=== PATIENT | female | born 1970 | race Caucasian/White ===

== ENCOUNTER → 2016-12-30 | Outpatient (CLI) | payer BC ==
[2016-12-30 10:26] LABS: HEMATOCRIT 45.4 % (37.0-47.0); HEMOGLOBIN 14.9 g/dL (12.0-16.0); MEAN CORPUSCULAR HEMOGLOBIN 34.6 PG (27-31); MEAN CORPUSCULAR HGB CONC 32.8 g/dL (33-37); MEAN CORPUSCULAR VOLUME 105.3 FL (81-99); MEAN PLATELET VOLUME 10.3 FL (7.4-12.2); RED BLOOD COUNT 4.31 10^6/uL (4.20-5.40)
[2016-12-30 10:32] LABS: BLOOD UREA NITROGEN 15 mg/dL (7-22); BUN/CREATININE RATIO 18.75 (6-20); CALCIUM 9.2 mg/dL (8.7-10.7); EST GLOMERULAR FILTRATION > 60 (>60 ml/min/1.73m(2)); SERUM ALBUMIN 4.3 g/dL (3.5-4.8); SERUM CHOLESTEROL 205 mg/dL (120-200)
[2016-12-30 10:44] LABS: CHOL/HDL RATIO 1.55 RATIO (0-4.0); HDL CHOLESTEROL 132 mg/dL (40-150)
== END ==
LOC: LAB 10:10
PROVIDERS: ATTEND Family Medicine
DX: Z00.00 Encounter for general adult medical examination without abnormal findings (principal); E53.8 Deficiency of other specified B group vitamins
CPT/HCPCS: 36415; 80053; 80061; 82607; 84443; 85027

== ENCOUNTER → 2016-12-30 | Outpatient (CLI) | payer BC ==
[2016-12-30 15:43] LABS: BILIRUBIN,URINE NEGATIVE (NEG); COLOR,URINE YELLOW; GLUCOSE, URINE (UA) NEGATIVE (NEG); NITRATE,URINE NEGATIVE (NEG); OCCULT BLOOD,URINE NEGATIVE (NEG); PH,URINE 5.5 (5.0-8.5); PROTEIN,URINE NEGATIVE (NEG); UROBILINOGEN,URINE 0.2 mg/dL (0.2)
[2016-12-30 15:45] LABS: CLARITY,URINE CLEAR (CLEAR)
[2016-12-30 15:47] LABS: URINE SAMPLE TYPE VOID
[2016-12-30 15:49] LABS: SQUAMOUS EPITHELIAL CELL,UR MANY
== END ==
LOC: MOB LAB 13:16
PROVIDERS: ATTEND Family Medicine
DX: R30.0 Dysuria (principal)
CPT/HCPCS: 81001

== ENCOUNTER 2018-05-20 09:50 | Inpatient (IN) ==
[2018-05-20] MEDS ORDERED: ONDANSETRON 4 MG/2 ML VIAL IVP ONE (10:11)
[2018-05-20] MEDS ORDERED: Sodium Chloride 0.9% 1,000 ML PRIMARY IV ONE (10:11)
[2018-05-20] MEDS ORDERED: LORazepam 2 MG/1 ML VIAL IVP ONE (10:14)
[2018-05-20] MEDS ORDERED: Sodium Chloride 0.9% 1,000 ML, Magnesium Sulfate 2gm (Premix) 50 ML with Multivitamin I... IV ONE ×5 (10:15)
[2018-05-20 10:18] LABS: BASOPHILS # (AUTO) 0.02 10*3/UL; BASOPHILS % (AUTO) 0.2 % (0-1); EOSINOPHILS # (AUTO) 0.09 10*3/UL; EOSINOPHILS % (AUTO) 1.1 % (0-8); Hematocrit [HCT] 45.9 % (37.0-47.0); Hemoglobin [HGB] 16.8 g/dL (12.0-16.0); LYMPHOCYTES # (AUTO) 1.36 10*3/uL; MEAN CORPUSCULAR HEMOGLOBIN 38.1 PG (27-31); MEAN CORPUSCULAR HGB CONC 36.6 g/dL (33-37); MEAN CORPUSCULAR VOLUME 104.1 FL (81-99); MEAN PLATELET VOLUME 10.4 FL (7.4-12.2); MONOCYTES # (AUTO) 0.77 10*3/UL (0.3-0.8); MONOCYTES % (AUTO) 9.2 % (5-15); NEUTROPHILS # (AUTO) 6.08 10*3/UL; NEUTROPHILS % (AUTO) 73.1 % (50-80); RED BLOOD COUNT 4.41 10^6/uL (4.20-5.40)
--- NOTE | 2018-05-20 10:23 | EKG ---
[address] [address] Measurements Intervals [place] Rate: 107 P: 74 ID: [id number] QRS: 17 QRSD: 82 T: 57 QT: 306 QTc: 369 Interpretive Statements SINUS TACHYCARDIA LOW QRS VOLTAGE IN PRECORDIAL LEADS ABNORMAL RHYTHM ECG No previous ECG available for comparison Electronically Signed On 05-20-18 15:06:41 MDT by Dennis Oleary [id number]
[2018-05-20 10:24] LABS: PLATELET MORPHOLOGY COMMENT NORMAL MORPHOLOGY (NORM); RBC MORPHOLOGY COMMENT NORMAL MORPHOLOGY (NORM); WBC MORPHOLOGY COMMENT NORMAL MORPHOLOGY (NORM)
[2018-05-20 10:25] LABS: BLOOD UREA NITROGEN 6 mg/dL (7-22); BUN/CREATININE RATIO 8.57 (6-20); SERUM ALBUMIN 4.4 g/dL (3.5-4.8)
[2018-05-20 10:27] LABS: VENOUS PH 7.42 (7.32-7.42)
[2018-05-20] MEDS ORDERED: Sodium Chloride 0.9% 1,000 ML with Multivitamin Inj 10 ML, Thiamine Inj 100 MG, Folic A... IV ONE ×5 (10:45)
[2018-05-20 10:46] LABS: BILIRUBIN,URINE SMALL (NEG); CLARITY,URINE CLEAR (CLEAR); COLOR,URINE YELLOW (Y); GLUCOSE, URINE (UA) NEGATIVE (NEG); OCCULT BLOOD,URINE NEGATIVE (NEG); PH,URINE 5.5 (5.0-8.5); PROTEIN,URINE 30 mg/dl (NEG); UROBILINOGEN,URINE 0.2 EU/dL (0.2)
[2018-05-20 10:55] LABS: BACTERIA,URINE FEW; SQUAMOUS EPITHELIAL CELL,UR MANY; URINE SAMPLE TYPE CLEAN CATCH URINE
[2018-05-20 10:56] LABS: OPIATE SCREEN,URINE NEGATIVE (NEG)
[2018-05-20 10:57] LABS: AMPHETAMINE SCREEN NEGATIVE (NEG); CANNABINOID SCREEN,URINE POSITIVE (NEG); COCAINE SCREEN NEGATIVE (NEG); METHADONE URINE SCREEN NEGATIVE (NEG); METHAMPHETAMINES SCREEN,URINE NEGATIVE (NEG)
--- NOTE | 2018-05-20 12:20 | PDOC ---
General Adult HPI - General Chief Complaint: Palpitations Stated Complaint: RAPID HR Date Seen by Provider: 05/20/18 Time Seen by Provider: 10:00 Source: POSITIVE: Patient Exam Limitations: POSITIVE: No limitations Nurse's Notes Reviewed & Considered: Yes - History of Present Illness Initial Comment: The patient is a 48-year-old female. She states that this morning she was preparing to take a shower and developed a "rapid heart rate". She also has been very tremulous this morning. She denies any head chest or abdominal pain. Dizziness but no syncope. No focal sensory or motor symptoms. Patient has a long-standing history of alcohol abuse and states she drinks about 12 cans of beer every night. No dyspnea, fevers, or chills. She did have some nausea and vomiting this morning. 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 Have you received a tetanus shot in the past 10 years?: Yes Body Location Affected: REPORTS: Chest ("Rapid heart rate"), Other (Tremulous) Timing: REPORTS: Gradual, Getting Worse Duration: 4-6 hours Severity: Moderate Quality: REPORTS: Other (Patient denies any pain anywhere) Modifying Factors: improves with: Vomiting (Nausea with vomiting this morning) Similar Symptoms Previously: No Recent Care Received: REPORTS: Denies Any Prior Injuries Related to Current Complaint?: No - Patient Home Medications Home Medications: Home Medications Aspirin [Aspir 81] 81 mg PO DAILY tab 12/12/15 sertraline 100 mg tablet 100 mg PO QD #90 tab 02/08/18 ondansetron 4 mg disintegrating tablet 4 mg PO BID-TID PRN #10 tab 05/19/18 pantoprazole 40 mg tablet,delayed release 40 mg PO BID 14 Days #28 tab 05/19/18 Cyanocobalamin (Vitamin B-12) [B-12] 1,000 mcg PO DAILY 05/20/18 Multivitamin [Multivitamins] 1 ea PO DAILY 05/20/18 - Patient Allergies Allergies/Adverse Reactions: Allergies 3 Allergy/AdvReac Type Severity Reaction Status Date / Time No Known Drug Allergies Allergy NO KNOWN Verified 05/20/18 10:10 ALLERGY Past Medical History - heen HEENT History: Denies History Cardiovascular History: Denies History Additional Cardiovasular History: OCCASIONAL MURMUR, PALPATATIONS Respiratory History: Snoring Gastrointestinal History: Other (please comment) Additional Gastrointestinal History: CHRONIC DIARRHEA Genitourinary History: Denies History Endocrine History: Denies History Musculoskeletal History: Joint Pain Additional Musculoskeletal History: L KNEE Neurological History: Seizures Additional Neurological History: DIAGNOSED BRAIN TUMOR. Additional Blood Disorders History: FACTOR V. 0900 DR ROSA AWARE OF SURGERY AND OK WITH PT STOPPING COUMADIN. NO BRIDGE THERAPY NEEDED. SB Psychiatric History: Depression, Anxiety Disorders History of Sexually Transmitted Diseases: No History of MDRO: No History of Other Communicable Diseases: No Alcohol Use: Occasionally In the Past 12 Months, Have Used or Abuse Any Substance: None Previous Surgical History: Yes Anesthesia Reactions: No Malignant Hyperthermia: No Significant Family History: No pertinent family hx Past Medical History Reviewed: Reviewed - No Changes ROS - Limitations ROS Limitations: No Limitations Constitution: REPORTS: Weakness Cardiovascular: REPORTS: Heart Racing Respiratory: REPORTS: Denies Resp Symptoms Neurological: REPORTS: Denies Neuro Symptoms Gastrointestinal: REPORTS: Nausea, Vomitting Endocrine: REPORTS: Denies Symptoms Musculoskeletal: REPORTS: Denies MS Symptoms Genitourinary: REPORTS: Denies Symptoms Eyes: REPORTS: Denies Symptoms ENT: REPORTS: Denies Symptoms Skin: REPORTS: Denies Skin Symptoms Lympathic: REPORTS: Denies Lympathic Symptoms Immunologic: POSITIVE: Denies Symptoms Psychiatric: POSITIVE: Anxiety General Adult Exam - General Appearance General Appearance: POSITIVE: Alert, Cooperative, No Acute Distress, No Evidence of Trauma, Anxious, Other (Very tremulous and anxious) - HEENT HEENT: POSITIVE: Head Inspection Nml, Eyes Inspection Nml, Ears Inspection Nml, Nose Inspection Nml, Oral/Dental Inspect. Nml, Pharynx Inspect. Nml, PERRL, EOMI - Pupils Pupil Size: 4 mm: Bilateral (PERRLA) - Neck Neck: POSITIVE: Normal Inspection, Thyroid Normal - Respiratory Respiratory: POSITIVE: No Respiratory Distress, Breath Sounds Normal, Chest Non- Tender, Other (Respiratory rate 24/m) - Cardiovascular Cardiovascular: POSITIVE: Regular Rate & Rhythm, No Murmur, No Gallop, PMI Normal, Tachycardia (Sinus tachycardia had around 115/m) Peripheral Pulses: Radial (R): 2+, Radial (L): 2+ - Abdomen Abdomen: Soft: (All Quadrants), Normal Bowel Sounds: (All Quadrants), Denies Tenderness: (All Quadrants), No Splenomegaly: (All Quadrants), No Hepatomegaly: (All Quadrants), No Guarding: (All Quadrants), No Rebound: (All Quadrants), No Palpable Pulse: (All Quadrants), No [place] Mass: (All Quadrants), No Distention: (All Quadrants), No Rigidity: (All Quadrants) - Back Back: POSITIVE: Normal Inspection - Skin Skin: POSITIVE: Normal Color, Warm, Dry, No Rash - Extremities Extremity: Non-Tender: (All Extremities), Normal ROM: (All Extremities), Normal Inspection: (All Extremities) - Neurological / Psychological Neurological: POSITIVE: Oriented X3, hr clerk Normal As Tested, Motor Normal, Sensation Normal, 5, 6 General Adult Progress - Results Reviewed by me Lab Results Reviewed by Me: Yes Lab Results:: Laboratory Results 3 05/20/18 05/20/18 05/20/18 10:00 10:00 10:00 WBC 8.33 RBC 4.41 Hgb 16.8 H Hct 45.9 MCV 104.1 H MCH 38.1 H MCHC 36.6 RDW Std Deviation 50.6 H RDW Coeff of [place] 13.3 Plt Count 210 MPV 10.4 Immature Gran % (Auto) 0.1 Neut % (Auto) 73.1 Lymph % (Auto) 16.3 [place] % (Auto) 9.2 Eos % (Auto) 1.1 Baso % (Auto) 0.2 Immature Gran # (Auto) 0.01 Neut # (Auto) 6.08 Lymph # (Auto) 1.36 [place] # (Auto) 0.77 Eos # (Auto) 0.09 Baso # (Auto) 0.02 WBC Morphology Comment Normal morphology Plt Morphology Comment Normal morphology RBC Morph Comment Normal morphology VBG pH VBG pCO2 VBG HCO3 VBG Base Excess Sodium 138 Potassium 3.9 Chloride 105 Carbon Dioxide 19 L Anion Gap 14 BUN 6 L Creatinine 0.7 Estimated GFR > 60 BUN/Creatinine Ratio 8.57 Glucose 76 L Calculated Osmolality 282.0 Calcium 9.5 Magnesium 2.0 Total Bilirubin 0.8 AST 185 H ALT 148 H Alkaline Phosphatase 128 H Total Creatine Kinase 46 Troponin I < 0.012 Total Protein 7.4 Albumin 4.4 Globulin 3.0 Albumin/Globulin Ratio 1.40 TSH Ur Collection Type Urine Color Urine Clarity Urine pH Ur Specific [place] U Specif Grav (Refrac) Urine Protein Urine Glucose (UA) Urine Ketones Urine Occult Blood Urine Nitrate Urine Bilirubin Urine Urobilinogen Ur Leukocyte Esterase Urine RBC Urine WBC Ur Squamous Epith Cells Ur Renal Epithelial Cell Urine Crystals Urine Bacteria Urine Casts Urine Mucus Urine Trichomonas Urine Yeast Ur Culture Indicated? Urine Opiates Screen Ur Buprenorphine Ur Oxycodone Screen Urine Methadone Screen Ur Propoxyphene Screen Barbiturate Screen U Tricyclic Antidepress Phencyclidine Screen Amphetamines Screen U Methamphetamines Scrn Benzodiazepines Screen Cocaine Screen U Marijuana (THC) Screen Serum Alcohol 21 H 3 05/20/18 05/20/18 05/20/18 10:00 10:20 10:35 WBC RBC Hgb Hct MCV MCH MCHC RDW Std Deviation RDW Coeff of [place] Plt Count MPV Immature Gran % (Auto) Neut % (Auto) Lymph % (Auto) [place] % (Auto) Eos % (Auto) Baso % (Auto) Immature Gran # (Auto) Neut # (Auto) Lymph # (Auto) [place] # (Auto) Eos # (Auto) Baso # (Auto) WBC Morphology Comment Plt Morphology Comment RBC Morph Comment VBG pH 7.42 VBG pCO2 34 L VBG HCO3 22 VBG Base Excess -3 L Sodium Potassium Chloride Carbon Dioxide Anion Gap BUN Creatinine Estimated GFR BUN/Creatinine Ratio Glucose Calculated Osmolality Calcium Magnesium Total Bilirubin AST ALT Alkaline Phosphatase Total Creatine Kinase Troponin I Total Protein Albumin Globulin Albumin/Globulin Ratio TSH 0.899 Ur Collection Type Clean catch urine Urine Color Yellow Urine Clarity Clear Urine pH 5.5 Ur Specific [place] 1.030 U Specif Grav (Refrac) 1.030 Urine Protein 30 A Urine Glucose (UA) Negative Urine Ketones 40 Urine Occult Blood Negative Urine Nitrate Negative Urine Bilirubin Small Urine Urobilinogen 0.2 Ur Leukocyte Esterase Small Urine RBC 1-3 Urine WBC 4-8 H Ur Squamous Epith Cells Many Ur Renal Epithelial Cell None Urine Crystals None Urine Bacteria Few Urine Casts None Urine Mucus Moderate Urine Trichomonas None Urine Yeast None Ur Culture Indicated? Culture not set Urine Opiates Screen Negative Ur Buprenorphine Negative Ur Oxycodone Screen Negative Urine Methadone Screen Negative Ur Propoxyphene Screen Negative Barbiturate Screen Negative U Tricyclic Antidepress Negative Phencyclidine Screen Negative Amphetamines Screen Negative U Methamphetamines Scrn Negative Benzodiazepines Screen Negative Cocaine Screen Negative U Marijuana (THC) Screen Positive H Serum Alcohol CBC and BMP: 05/20/18 10:00 05/20/18 10:00 EKG Interpreted/Reviewed By Me:: Yes EKG Interpretation:: POSITIVE: Normal Intervals, Normal [place], Normal QRS, Normal ST/T, Abnormal EKG (Sinus tachycardia). NEGATIVE: Normal Sinus Rhythm ( Sinus tachycardia at 110/m), Normal Rate (110/m) - Patient's Progress School/Work Release Addressed: POSITIVE: Not Applicable Re-Examine Time: 12:15 Re-Examine Comment: Patient given 2 mg of Ativan and a banana bag of 100 mg of thiamine, 1 mg folic acid and 2 g of magnesium sulfate and a liter of fluid. Heart rate down to around 95 for minute now and tremulousness resolved. Patient resting comfortably. Status: POSITIVE: Improved, Re-Examined Antibiotics Given: No - Consult Consult (If Yes, Name of Consulting MD & Time Called): Yes (Dr. Espinoza, hospitalist, [id number]) Consulting MD will see pt:: POSITIVE: [facility] [place] Admit Counseled: POSITIVE: Patient, RE: Lab Results, RE: DX, RE: Need for F/U Patient Care Time - Estimated PCT Patient Care Time (In Minutes): 50 Vital Signs - Recent Vital Signs Vital Signs: Vital Signs (Last 8 hours) Pulse 05/20/18 09:58 107 H 05/20/18 09:50 111 H - VS Reviewed Vital Signs Reviewed: Yes Discharge Clinical Impression: Alcohol abuse, Alcohol withdrawal Discharge Disposition: Admit to Inpatient Condition: Fair Follow Up With: Carolyn Durham [Primary Care Provider] - Date Decision to Admit to Inpatient: 05/20/18 Time Decision to Admit to Inpatient: 12:00
[2018-05-20] MEDS ORDERED: ACETAMINOPHEN 500 MG TABLET PO PRN (13:54)
[2018-05-20] MEDS ORDERED: MAG HYDROX/AL HYDROX/SIMETH 30 ML SUSP PO PRN (13:54)
[2018-05-20] MEDS ORDERED: ONDANSETRON 4 MG/2 ML VIAL IVP PRN (13:54)
[2018-05-20] MEDS ORDERED: LIDOCAINE W/ SODIUM BICARB 0.5 ML SYR SUBD PRN (13:54)
[2018-05-20] MEDS ORDERED: Loperamide Tab 2 MG TABLET PO PRN (13:54)
[2018-05-20] MEDS ORDERED: Magnesium Sulfate 2gm (Premix) 2 GM/50 ML BAG IV ONE (13:54)
[2018-05-20] MEDS ORDERED: LORazepam 1 mg tab (ETOH withdrawal) PO PRN (13:54)
[2018-05-20] MEDS ORDERED: LORazepam Inj(ETOH withdrawal) 2 MG/ML VIAL IVP PRN (13:54)
[2018-05-20] MEDS ORDERED: MAGNESIUM 400 MG/5 ML - 30 ML (MILK OF MAGNESIA) PO PRN (13:54)
[2018-05-20] MEDS: ChlordiazePOXIDE Cap 25 MG CAPSULE PO SCH ×2 (14:36→22:18)
[2018-05-20] MEDS ORDERED: NICOTINE 21 MG /DAY PATCH TRANSDERM PRN (15:00)
--- NOTE | 2018-05-20 16:41 | DI ---
AP CHEST X-RAY, 05/20/2018 3:02 PM : Clinical History: Tachycardia. Cough. Previous Exam: None at this facility. There is no acute soft tissue or bony abnormality. Heart size is normal. Lungs are clear. Mediastinal structures are normal. There are no pulmonary nodules. Reading: Normal chest x-ray.
--- NOTE | 2018-05-20 17:49 | DI ---
CT ABDOMEN SCAN WITH IV CONTRAST, 05/20/2018 4:30 PM : Clinical History: Abdominal pain. Previous Exam: None at this facility. Scans are performed from the lower lung bases through the liver and kidneys with IV contrast. 75 mL o f Isovue 300 was injected IV. No oral or rectal contrast was ordered. The lung bases are clear. The liver is normal in size but shows marked diffuse fatty infiltration The gallbladder is grossly normal. There is no abnormality of the spleen, pancreas, and adrenal glands. Both kidneys are normal in size, shape, position and contour. There is no hydronephrosis or hydrouret er. No renal or ureteral calculi are present. There are no abnormal retrocrural or periaortic nodes. No ascites is present. READING: Diffuse fatty infiltration of the liver. The exam is otherwise normal. CT PELVIS SCAN WITH IV CONTRAST, 05/20/2018 4:30 PM: Clinical History: See above. Previous Exam: None at this facility. Scans are performed from just superior to the umbilicus to the symphysis pubis with IV contrast. This is the same bolus of contrast used for the CT scans of the abdomen. Scans through the lower abdomen and pelvis show no masses, enhancing lesions, or abnormal fluid colle ctions. There is no adenopathy. The appendix is quite long but normal. The small bowel, terminal ileu m, and ileocecal valve are normal. The colon is also normal. There are no hernias. There is an IUD in the uterus and the uterus itself is normal. Both ovaries are normal. READING: Normal CT scan of the pelvis with IV contrast.
--- NOTE | 2018-05-20 21:21 | PDOC ---
HPI - History of Present Illness Date of Service: 05/20/18 Time of Service: 16:00 Chief Complaint: Rapid heartbeat and chest discomfort History of Present Illness: This is a 48-year-old female with a prior history of a left-sided brain tumor that was resected several years ago in [place], [place], and apparently was deemed a benign tumor, who presents with complaints of rapid onset heart rate spontaneously this morning along with some chest discomfort. She states that she's had intermittent cough with post 2 subjective vomiting recently, but no fevers and no chills. She states that accompanied with this she had some mid and lower quadrant abdominal pain. She's never had anything like this happen before. She came into the emergency room for evaluation. It is presumed that her tachycardia was related to alcohol withdrawal and she was given a dose of Ativan and apparently the patient seemed to relax in terms of her tachycardia. She had some chest discomfort with this. She states that that resolved. She admits to drinking 6-12 beers a day, but has never had any alcohol withdrawal problems before. Her labs did show some elevated liver enzymes but coagulation studies were not done. The patient states that again, she's never had alcohol withdrawal, has never had alcohol withdrawal seizures, and does not complain of agitation, or tremors in the morning. She states her last alcoholic beverage was around 9 PM last night. On the floor here when I see her, she is not exhibiting signs of alcohol withdrawal. She does have a family history of heart disease, and she does smoke. She does not have diabetes, does not have hypertension, and she does not know her cholesterol status. She is not on any medications for any primary medical issues. There was no exertional component to the pain. The pain seemed to coincide with the elevated heart rate. The urinalysis was positive for marijuana. She did not deny smoking marijuana. Interestingly, the patient states that her abdominal pain is been somewhat persistent and that there was a plan to do an ultrasound to look at the gallbladder from a recent outpatient visit. Past Medical History Medical History: 1. Heavy alcohol use. 2. History of brain tumor with seizure that resolved after brain tumor resection. 3. Tobacco abuse. 4. Marijuana use. 5. Depression, on Zoloft. 6. GERD Surgical History: 1. Brain tumor resection. Apparently she was treated with chemotherapy and radiation although she was told that 50% of the tumor still remained post surgery and she did follow up until the last 3 years. She states that she was told the tumor was benign. Pertinent Family History: Significant for coronary artery disease. Past Social History: Smokes tobacco and marijuana. Drinks 6-12 beers a day. 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 . Has 2 children described as healthy. Tobacco Use: Current Every Day Smoker In the Past 12 Months, Have Used or Abuse Any of the Following Substance: Marijuana Alcohol Use: Heavy Medication / Allergies Home Medications: Home Medications 3 Medication Instructions Recorded Confirmed Type Aspirin [Aspir 81] 81 mg PO DAILY tab 12/12/15 05/20/18 History sertraline 100 mg tablet 100 mg PO QD #90 tab 02/08/18 05/20/18 Rx ondansetron 4 mg disintegrating 4 mg PO BID-TID PRN #10 tab 05/19/18 05/20/18 Rx tablet pantoprazole 40 mg tablet,delayed 40 mg PO BID 14 Days #28 tab 05/19/18 Rx release Cyanocobalamin (Vitamin B-12) 1,000 mcg PO DAILY 05/20/18 05/20/18 History [B-12] Multivitamin [Multivitamins] 1 ea PO DAILY 05/20/18 05/20/18 History Allergies/Adverse Reactions: Allergies 3 Allergy/AdvReac Type Severity Reaction Status Date / Time No Known Drug Allergies Allergy NO KNOWN Verified 05/20/18 10:10 ALLERGY Review of Systems - Review of Systems All Systems: Reviewed & No Additional Complaints Except as Stated (I did a 12 point review of systems and other than that discussed in history present illness , the review systems was negative.) Exam - Vitals Vital Signs: Vital Signs Temperature 97.5 F Temperature Source Temporal Artery Scan Pulse Rate [Telemetry] 83 Pulse Rate 96 Respiratory Rate 16 Blood Pressure [Right Arm] 122/70 Blood Pressure 126/68 Pulse Ox 94 Oxygen Delivery Method Room Air Height 5 ft 3 in Weight 145 lb 5 oz - General General Appearance: No Acute Distress, Cooperative - Head Head Exam: Normal Inspection, Normocephalic, Atraumatic - Eye Eye Exam: POSITIVE: No Scleral Icterus - ENT ENT Exam: POSITIVE: Mucous Membranes Moist - Neck Neck Exam: Normal Inspection, No Tenderness, No Lymphadenopathy, No Thyromegaly , JVP is not Raised - Respiratory Respiratory Exam: POSITIVE: Clear to Auscultation - Bilaterally, Breathing Non Labored, Normal to Percussion and Palpation - Cardiovascular Cardiovascular Exam: POSITIVE: RRR, No Murmur, No Clicks, No Gallops, No Rubs, No JVD - GI/Abdominal GI/Abdominal Exam: POSITIVE: Normal Bowel Sounds, Non Tender, Non Distended, Soft - Rectal Rectal Exam: POSITIVE: Deferred - External Exam: POSITIVE: Deferred Exam: POSITIVE: Deferred - Extremities Extremities Exam: POSITIVE: No Clubbing Present, No Edema Present, No Cyanosis Present - Back Back Exam: POSITIVE: No CVA Tenderness - Neurological Neurological Exam: POSITIVE: Alert, Oriented x 3, No Facial Droop, Speech Intact / Clear, Moves All Extremities Equally - Psychiatric Psychiatric Exam: POSITIVE: Normal Mood, Flat Affect - Integumentary Integumentary Exam: POSITIVE: Normal Color, Warm, Dry, Intact - Central Line Examination Central Line Present on Admission: No Results - Labs CBC and BMP: 05/20/18 10:00 05/20/18 10:00 Additional Lab Results: Laboratory Results 05/20/18 05/20/18 05/20/18 Range/Units 10:00 10:00 10:00 WBC 8.33 (4.8-10.8) 10^3/uL RBC 4.41 (4.20-5.40) 10^6/uL Hgb 16.8 H (12.0-16.0) g/dL Hct 45.9 (37.0-47.0) % MCV 104.1 H (81-99) FL MCH 38.1 H (27-31) PG MCHC 36.6 (33-37) g/dL RDW Std Deviation 50.6 H (39-50) fL RDW Coeff of Harman 13.3 (11.5-14.5) % Plt Count 210 (140-350) 10*3/uL MPV 10.4 (7.4-12.2) FL Immature Gran % (Auto) 0.1 (0-5) % Neut % (Auto) 73.1 (50-80) % Lymph % (Auto) 16.3 (10-50) % Rooks % (Auto) 9.2 (5-15) % Eos % (Auto) 1.1 (0-8) % Baso % (Auto) 0.2 (0-1) % Immature Gran # (Auto) 0.01 10*3/UL Neut # (Auto) 6.08 10*3/UL Lymph # (Auto) 1.36 10*3/uL Rooks # (Auto) 0.77 (0.3-0.8) 10*3/UL Eos # (Auto) 0.09 10*3/UL Baso # (Auto) 0.02 10*3/UL WBC Morphology Comment Normal morphology (NORM) Plt Morphology Comment Normal morphology (NORM) RBC Morph Comment Normal morphology (NORM) VBG pH (7.32-7.42) VBG pCO2 (45-55) mmHg VBG HCO3 (22-26) mmol/L VBG Base Excess (-2-2) MMOL/L Sodium 138 (135-145) meq/L Potassium 3.9 (3.8-5.2) meq/L Chloride 105 (98-112) meq/L Carbon Dioxide 19 L (23-33) meq/L Anion Gap 14 (5-20) BUN 6 L (7-22) mg/dL Creatinine 0.7 (0.50-1.20) mg/dL Estimated GFR > 60 (>60 ml/min/1.73m(2)) BUN/Creatinine Ratio 8.57 (6-20) Glucose 76 L (78-110) mg/dL Calculated Osmolality 282.0 (267-292) mOsm/kg Calcium 9.5 (8.7-10.7) mg/dL Magnesium 2.0 (1.6-2.4) mg/dL Total Bilirubin 0.8 (0.3-1.2) mg/dL AST 185 H (8-39) IU/L ALT 148 H (9-52) IU/L Alkaline Phosphatase 128 H (38-126) IU/L Total Creatine Kinase 46 (30-136) IU/L Troponin I < 0.012 (< 0.040) ng/mL Total Protein 7.4 (6.1-8.0) g/dL Albumin 4.4 (3.5-4.8) g/dL Globulin 3.0 (2.50-4.10) g/dL Albumin/Globulin Ratio 1.40 (1.3-2.0) mg/g Lipase (23-300) IU/L TSH (0.2700-4.2000) uIU/mL Ur Collection Type Urine Color (Y) Urine Clarity (CLEAR) Urine pH (5.0-8.5) Ur Specific [place] (1.005-1.030) U Specif Grav (Refrac) Urine Protein (NEG) mg/dl Urine Glucose (UA) (NEG) mg/dL Urine Ketones (NEG) Urine Occult Blood (NEG) Urine Nitrate (NEG) Urine Bilirubin (NEG) Urine Urobilinogen (0.2) EU/dL Ur Leukocyte Esterase (NEG) Urine RBC (NONE) /hpf Urine WBC (NONE) Ur Squamous Epith Cells (NONE) Ur Renal Epithelial Cell (NONE) Urine Crystals Urine Bacteria (NONE) Urine Casts (NONE) Urine Mucus (NONE) Urine Trichomonas (NONE) Urine Yeast (NONE) Ur Culture Indicated? Urine Opiates Screen (NEG) Ur Buprenorphine (NEG) Ur Oxycodone Screen (NEG) Urine Methadone Screen (NEG) Ur Propoxyphene Screen (NEG) Barbiturate Screen (NEG) U Tricyclic Antidepress (NEG) Phencyclidine Screen (NEG) Amphetamines Screen (NEG) U Methamphetamines Scrn (NEG) Benzodiazepines Screen (NEG) Cocaine Screen (NEG) U Marijuana (THC) Screen (NEG) Serum Alcohol 21 H (0-10) mg/dL 05/20/18 05/20/18 05/20/18 Range/Units 10:00 10:20 10:35 WBC (4.8-10.8) 10^3/uL RBC (4.20-5.40) 10^6/uL Hgb (12.0-16.0) g/dL Hct (37.0-47.0) % MCV (81-99) FL MCH (27-31) PG MCHC (33-37) g/dL RDW Std Deviation (39-50) fL RDW Coeff of Harman (11.5-14.5) % Plt Count (140-350) 10*3/uL MPV (7.4-12.2) FL Immature Gran % (Auto) (0-5) % Neut % (Auto) (50-80) % Lymph % (Auto) (10-50) % Rooks % (Auto) (5-15) % Eos % (Auto) (0-8) % Baso % (Auto) (0-1) % Immature Gran # (Auto) 10*3/UL Neut # (Auto) 10*3/UL Lymph # (Auto) 10*3/uL Rooks # (Auto) (0.3-0.8) 10*3/UL Eos # (Auto) 10*3/UL Baso # (Auto) 10*3/UL WBC Morphology Comment (NORM) Plt Morphology Comment (NORM) RBC Morph Comment (NORM) VBG pH 7.42 (7.32-7.42) VBG pCO2 34 L (45-55) mmHg VBG HCO3 22 (22-26) mmol/L VBG Base Excess -3 L (-2-2) MMOL/L Sodium (135-145) meq/L Potassium (3.8-5.2) meq/L Chloride (98-112) meq/L Carbon Dioxide (23-33) meq/L Anion Gap (5-20) BUN (7-22) mg/dL Creatinine (0.50-1.20) mg/dL Estimated GFR (>60 ml/min/1.73m(2)) BUN/Creatinine Ratio (6-20) Glucose (78-110) mg/dL Calculated Osmolality (267-292) mOsm/kg Calcium (8.7-10.7) mg/dL Magnesium (1.6-2.4) mg/dL Total Bilirubin (0.3-1.2) mg/dL AST (8-39) IU/L ALT (9-52) IU/L Alkaline Phosphatase (38-126) IU/L Total Creatine Kinase (30-136) IU/L Troponin I (< 0.040) ng/mL Total Protein (6.1-8.0) g/dL Albumin (3.5-4.8) g/dL Globulin (2.50-4.10) g/dL Albumin/Globulin Ratio (1.3-2.0) mg/g Lipase (23-300) IU/L TSH 0.899 (0.2700-4.2000) uIU/mL Ur Collection Type Clean catch urine Urine Color Yellow (Y) Urine Clarity Clear (CLEAR) Urine pH 5.5 (5.0-8.5) Ur Specific [place] 1.030 (1.005-1.030) U Specif Grav (Refrac) 1.030 Urine Protein 30 A (NEG) mg/dl Urine Glucose (UA) Negative (NEG) mg/dL Urine Ketones 40 (NEG) Urine Occult Blood Negative (NEG) Urine Nitrate Negative (NEG) Urine Bilirubin Small (NEG) Urine Urobilinogen 0.2 (0.2) EU/dL Ur Leukocyte Esterase Small (NEG) Urine RBC 1-3 (NONE) /hpf Urine WBC 4-8 H (NONE) Ur Squamous Epith Cells Many (NONE) Ur Renal Epithelial Cell None (NONE) Urine Crystals None Urine Bacteria Few (NONE) Urine Casts None (NONE) Urine Mucus Moderate (NONE) Urine Trichomonas None (NONE) Urine Yeast None (NONE) Ur Culture Indicated? Culture not set Urine Opiates Screen Negative (NEG) Ur Buprenorphine Negative (NEG) Ur Oxycodone Screen Negative (NEG) Urine Methadone Screen Negative (NEG) Ur Propoxyphene Screen Negative (NEG) Barbiturate Screen Negative (NEG) U Tricyclic Antidepress Negative (NEG) Phencyclidine Screen Negative (NEG) Amphetamines Screen Negative (NEG) U Methamphetamines Scrn Negative (NEG) Benzodiazepines Screen Negative (NEG) Cocaine Screen Negative (NEG) U Marijuana (THC) Screen Positive H (NEG) Serum Alcohol (0-10) mg/dL 05/20/18 05/20/18 Range/Units 13:54 16:00 WBC (4.8-10.8) 10^3/uL RBC (4.20-5.40) 10^6/uL Hgb (12.0-16.0) g/dL Hct (37.0-47.0) % MCV (81-99) FL MCH (27-31) PG MCHC (33-37) g/dL RDW Std Deviation (39-50) fL RDW Coeff of Harman (11.5-14.5) % Plt Count (140-350) 10*3/uL MPV (7.4-12.2) FL Immature Gran % (Auto) (0-5) % Neut % (Auto) (50-80) % Lymph % (Auto) (10-50) % Rooks % (Auto) (5-15) % Eos % (Auto) (0-8) % Baso % (Auto) (0-1) % Immature Gran # (Auto) 10*3/UL Neut # (Auto) 10*3/UL Lymph # (Auto) 10*3/uL Rooks # (Auto) (0.3-0.8) 10*3/UL Eos # (Auto) 10*3/UL Baso # (Auto) 10*3/UL WBC Morphology Comment (NORM) Plt Morphology Comment (NORM) RBC Morph Comment (NORM) VBG pH (7.32-7.42) VBG pCO2 (45-55) mmHg VBG HCO3 (22-26) mmol/L VBG Base Excess (-2-2) MMOL/L Sodium (135-145) meq/L Potassium (3.8-5.2) meq/L Chloride (98-112) meq/L Carbon Dioxide (23-33) meq/L Anion Gap (5-20) BUN (7-22) mg/dL Creatinine (0.50-1.20) mg/dL Estimated GFR (>60 ml/min/1.73m(2)) BUN/Creatinine Ratio (6-20) Glucose (78-110) mg/dL Calculated Osmolality (267-292) mOsm/kg Calcium (8.7-10.7) mg/dL Magnesium (1.6-2.4) mg/dL Total Bilirubin (0.3-1.2) mg/dL AST (8-39) IU/L ALT (9-52) IU/L Alkaline Phosphatase (38-126) IU/L Total Creatine Kinase (30-136) IU/L Troponin I 0.013 (< 0.040) ng/mL Total Protein (6.1-8.0) g/dL Albumin (3.5-4.8) g/dL Globulin (2.50-4.10) g/dL Albumin/Globulin Ratio (1.3-2.0) mg/g Lipase 50 (23-300) IU/L TSH (0.2700-4.2000) uIU/mL Ur Collection Type Urine Color (Y) Urine Clarity (CLEAR) Urine pH (5.0-8.5) Ur Specific [place] (1.005-1.030) U Specif Grav (Refrac) Urine Protein (NEG) mg/dl Urine Glucose (UA) (NEG) mg/dL Urine Ketones (NEG) Urine Occult Blood (NEG) Urine Nitrate (NEG) Urine Bilirubin (NEG) Urine Urobilinogen (0.2) EU/dL Ur Leukocyte Esterase (NEG) Urine RBC (NONE) /hpf Urine WBC (NONE) Ur Squamous Epith Cells (NONE) Ur Renal Epithelial Cell (NONE) Urine Crystals Urine Bacteria (NONE) Urine Casts (NONE) Urine Mucus (NONE) Urine Trichomonas (NONE) Urine Yeast (NONE) Ur Culture Indicated? Urine Opiates Screen (NEG) Ur Buprenorphine (NEG) Ur Oxycodone Screen (NEG) Urine Methadone Screen (NEG) Ur Propoxyphene Screen (NEG) Barbiturate Screen (NEG) U Tricyclic Antidepress (NEG) Phencyclidine Screen (NEG) Amphetamines Screen (NEG) U Methamphetamines Scrn (NEG) Benzodiazepines Screen (NEG) Cocaine Screen (NEG) U Marijuana (THC) Screen (NEG) Serum Alcohol (0-10) mg/dL - EKG Data -: EKG Interpreted by Me Rate: Tachycardia EKG Shows Normal: Sinus Rhythm - EKG Data When Compared to Previous EKG(s) There Are: Previous EKG Unavailable - Imaging Status: Image Reviewed by Me (I ordered a chest x-ray. On my view of the chest x-ray there is somewhat elongated lung field, could be consistent with early COPD. Radiologist read chest x-ray is negative. A CT scan of the abdomen and pelvis was done and the radiologist read that as a fatty liver. The liver looks better to me on the CT scan. The gallbladder looked a little contracted.) Assessment and Plan - Patient Problems (1) Sinus tachycardia Current Visit: Yes Status: Acute Code(s): R00.0 - Tachycardia, unspecified (2) Chest pain Current Visit: Yes Status: Acute Code(s): R07.9 - Chest pain, unspecified Qualifiers: Chest pain type: precordial pain Qualified Code(s): R07.2 - Precordial pain (3) History of benign brain tumor Current Visit: Yes Status: Acute Code(s): Z86.011 - Personal history of benign neoplasm of the brain (4) Tobacco abuse Current Visit: Yes Status: Acute Code(s): Z72.0 - Tobacco use (5) Marijuana abuse Current Visit: Yes Status: Acute Code(s): F12.10 - Cannabis abuse, uncomplicated (6) Depression Current Visit: Yes Status: Acute Code(s): F32.9 - Major depressive disorder , single episode, unspecified Qualifiers: Depression Type: other depression Qualified Code(s): F32.89 - Other specified depressive episodes (7) Elevated liver enzymes Current Visit: Yes Status: Acute Code(s): R74.8 - Abnormal levels of other serum enzymes (8) Fatty liver Current Visit: Yes Status: Acute Code(s): K76.0 - Fatty (change of) liver, not elsewhere classified (9) Alcohol abuse Current Visit: Yes Status: Acute Code(s): F10.10 - Alcohol abuse, uncomplicated - Assessment / Plan Additional Assessment/Plan Details: The patient's symptoms of abdominal pain and cough with posttussive vomiting have been present for some time. I think it's likely related to her alcohol use , GERD, and fatty liver disease. Gallbladder could be an issue, and an ultrasound has been ordered on the outpatient side, but we may need to consider proceeding with a gallbladder ultrasound during this hospital stay. She does not have any obstructive symptoms such as a total bilirubin elevation. In terms of the sinus tachycardiac, this could've been SVT. It's difficult to know how high her heart rate was at home, but I think post this hospital stay, the patient warrants Holter monitor to explore further. In addition we'll do telemetry monitoring here. I'll do serial troponins to rule out myocardial infarction. I think is very worthwhile to do a stress test in this patient given her risk factors of family history and tobacco abuse. Nothing about a Holter monitor if it does show SVT, then we may need to consider cardiology referral so that the patient could have this further worked up and determine whether there could be anything that can be amenable to ablation. I advised the patient to quit smoking, quit drinking alcohol, and to quit marijuana. It's quite possible that the sinus tachycardia could've been alcohol withdrawal , but I think that with an alcohol still at 21 on emergency room visit, that it' s less likely. She does not currently exhibit symptoms of alcohol withdrawal although again that could be related to Ativan administration in the emergency room. With the cough, I checked a chest x-ray, no evidence of infection or pneumonia but could be developing early COPD I will get an alpha-[address] scan of the abdomen and pelvis confirms what I thought and that would be that the patient has a fatty liver. I did discuss with her the difference between fatty liver from alcohol abuse and cirrhosis. I think if she can quit alcohol she has a good chance of the liver recovering but she could progress to cirrhosis and is well on her way to going in that direction and she continues to drink and could of cirrhosis if she continues to drink alcohol. We will do a send a stress test tomorrow. I do not think that we should put the patient on a treadmill given her presenting symptoms. I think we should go ahead and do a chemical stress test. Resting portion of the at 7 AM and stress portion at around 1 PM. I checked a lipase and it was negative. Doubt pancreatitis. Continue proton pump inhibitor. Some of the abdominal symptoms could also be from GERD or alcoholic gastritis. Reassuring that the CBC shows normal hemoglobin and hematocrit. Check vitamin B12 level, folate level Overall, the patient also have cardiac dysfunction related to her alcohol abuse. It's something that we talked about as well. Adding on a course of his hospital stay, an outpatient echocardiogram may make some sense as well. The patient and her are in agreement with the plan above. The patient' s stated that he felt overall that perhaps lifestyle choices such as smoking and alcohol were starting to catch up with his and they were started to get up with him in terms of their health. He agreed with cessation of alcohol and smoking. Is more difficult to tell whether the patient agrees with that. She did not seem to think that her tachycardia was related to withdrawal from alcohol. I am going to go ahead and continue CIWA protocol and will see how the patient scores on her assessments.
[2018-05-20] MEDS: MAGNESIUM OXIDE 400 MG TABLET PO SCH (22:18)
[2018-05-21 05:55] LABS: BASOPHILS # (AUTO) 0.02 10*3/UL; BASOPHILS % (AUTO) 0.4 % (0-1); EOSINOPHILS # (AUTO) 0.12 10*3/UL; EOSINOPHILS % (AUTO) 2.3 % (0-8); Hematocrit [HCT] 39.9 % (37.0-47.0); Hemoglobin [HGB] 13.1 g/dL (12.0-16.0); LYMPHOCYTES # (AUTO) 1.27 10*3/uL; MEAN CORPUSCULAR HEMOGLOBIN 35.9 PG (27-31); MEAN CORPUSCULAR HGB CONC 32.8 g/dL (33-37); MEAN CORPUSCULAR VOLUME 109.3 FL (81-99); MEAN PLATELET VOLUME 10.6 FL (7.4-12.2); MONOCYTES # (AUTO) 0.54 10*3/UL (0.3-0.8); MONOCYTES % (AUTO) 10.3 % (5-15); NEUTROPHILS # (AUTO) 3.27 10*3/UL; NEUTROPHILS % (AUTO) 62.5 % (50-80); RED BLOOD COUNT 3.65 10^6/uL (4.20-5.40)
[2018-05-21 05:58] LABS: PLATELET MORPHOLOGY COMMENT NORMAL MORPHOLOGY (NORM); RBC MORPHOLOGY COMMENT NORMAL MORPHOLOGY (NORM); WBC MORPHOLOGY COMMENT NORMAL MORPHOLOGY (NORM)
[2018-05-21 06:02] LABS: BLOOD UREA NITROGEN 6 mg/dL (7-22); CHOL/HDL RATIO 1.54 RATIO (0-4.0); SERUM ALBUMIN 2.8 g/dL (3.5-4.8); SERUM CHOLESTEROL 161 mg/dL (120-200)
[2018-05-21] MEDS: ChlordiazePOXIDE Cap 25 MG CAPSULE PO SCH ×2 (07:35→15:46)
[2018-05-21] MEDS ORDERED: MULTIVITAMIN PO SCH (09:00)
[2018-05-21] MEDS ORDERED: CYANOCOBALAMIN 1000 MCG PO SCH (09:00)
[2018-05-21] MEDS ORDERED: PANTOPRAZOLE IV 40 MG VIAL IVP SCH (09:00)
[2018-05-21] MEDS ORDERED: Patch Removal PATCH TRANSDERM PRN (09:00)
[2018-05-21] MEDS ORDERED: Sertraline Tab 50 MG TAB PO SCH (09:00)
[2018-05-21] MEDS: MAGNESIUM OXIDE 400 MG TABLET PO SCH (09:30)
--- NOTE | 2018-05-21 15:11 | STRESSTEST ---
[facility] Interpretive Statements Patient had Lexiscan stress test per protocol, her baseline BP was 120/78, heart rate was 85, EKG showed sinus rhythm with low QRS. Post injection patient did have some nausea, Maximum BP was 164/94 , maximum heart rate was 132, EKG no new changes. exepet sinus tachycardia. symptoms improved in the recovery phase., Conclusion: sinus tachycardia post injection otherwise no signicant EKG changes on the EKG part of lexiscan sterss test. await nuclear scan results. [email or web address]
[2018-05-21 16:28] VITALS: O2SAT 97
--- NOTE | 2018-05-21 17:11 | DI ---
SAME DAY LEXISCAN STRESS & REST MYOCARDIAL PERFUSION SCANS, 05/21/2018 7:00 AM : Clinical History: Tachycardia. Previous Exam: None at this facility. Monitoring Physician: Dr. Melvi Henley. Dose: Stress dose: 42 mCi on 05/21/2018. Rest dose: 13 mCi on 05/21/2018. Quantitative Analysis: [employer] program with low dose limited CT chest scan attenuation correctio n. Exam Quality: Excellent. Rejected Beats: Stress = 3%; Rest = 0%. HR: Stress = 77-83 b/m; Rest = 75-8 2 b/m. Left ventricular chamber sizes are normal at stress and rest. Transient ischemic dilatation ratio is 1.28 (normal Andre TID <= 1.22; normal Lexiscan TID <= 1.33). Stress LVEF: 75%; rest LVEF: 85%. Both the attenuated and non-attenuated corrected scans show a fixed defect in the lateral basal segment wi th partial reperfusion in this is in the territory of the obtuse marginal artery. There is an additio nal fixed defect on the non-attenuated corrected scans in the septum and this is normal on the non-at tenuated corrected scans. There is anatomical apical thinning. All other paulson perfuse normally at st ress and rest. There is hypokinesis in the laterobasal segment at stress and this reverts to a normal wall motion at rest. This corresponds to the area of reversible defect. All paulson contract vigorousl y at stress and rest. There is decreased myocardial thickening at stress in the laterobasal segment w here there is a reversible defect. This improves at rest. All other paulson show normal myocardial thic kening at stress and rest. Limited CT scans of the heart show no coronary artery calcifications. Ther e are no lung nodules or enlarged nodes. Readin. Normal stress and rest left ventricular chamber size. Transient ischemic dilatation ratio is 1.28 . 2. Normal stress and rest LVEF values of 75% and 85%, respectively. 3. There is a fixed defect with partial reperfusion involving the laterobasal segment both on the at tenuated and non-attenuated corrected scans. This same area is associated with decreased myocardial t hickening and wall motion at stress and these areas improve at rest. This would be in the obtuse tonia inal artery territory. All other paulson show a normal stress and rest perfusion, wall motion, and thic kening. 4. Low dose CT chest scan with of the heart show no coronary artery calcifications and there are no lung nodules or enlarged nodes.
[2018-05-21 17:18] VITALS: BP 145/88; RESP 18; TEMP 97.8
--- NOTE | 2018-05-21 18:34 | DCSUMMARY ---
Hospitalization Summary Admit Date: 05/20/2018 Discharge Date: 05/21/18 Hospital Course: Discharge diagnoses 1. Episode of tachycardia resolved 2. History of alcohol dependence 3. Possible withdrawal from alcohol 4. Fixed defect with partial reperfusion involving the lateral basal segment on Lexiscan stress test. 5. Fatty liver 6. History of brain tumor that needed surgery and chemoradiation in the past 7. History of depression in the past 8. Elevated LFT. Need follow-up. Hospital course This is a 48 years old female with medical history significant for history of previous brain tumor for which she had surgery before who presented to the hospital history of rapid heart rate that started the morning of admission. To me she denied chest pain however apparently she mentioned to Dr. Espinoza that she had some chest discomfort. She did have some nausea. She was shaking when she came into the ER they thought that she had alcohol withdrawal so she was giving fluids, Ativan and was admitted. She drinks about 6-12 beers a day. Does not seem to have a history of alcohol withdrawal before. By the time the patient came into the ER her EKG showed sinus tachycardia. She was seen by Dr. Espinoza please see his note. In addition to putting on CIWA scale she was put on Librium scheduled and she had a stress test. The cardiac enzymes were negative. I saw the patient the next day she was feeling better no palpitation. She did have a stress test which showed fixed defect with partial reperfusion involving the lateral basal segment. BeCause of that I did speak with Dr. Fontanez the azure developer who recommended putting the patient on metoprolol and aspirin. The patient normally takes aspirin. She'll follow-up with him next week and he said he will first do a stress echocardiogram. If positive then he'll consider doing angiogram. When I saw the patient on the day of discharge she denied chest pain to me. We did talk about her alcohol withdrawal symptoms and did suggest counseling she declined. She finds Librium and Ativan that she took was helpful. She plan to quit alcohol. She requested Ativan. I did warn her that she needs to quit drinking if she takes the Ativan. We did discuss prescribed Ativan she takes as needed and she will follow-up with her primary to see whether she can quit on her own with medications. As I said she declined a referral to counseling. I did strongly warned her not to drink alcohol and take the Ativan as this may lead to . She expressed understanding. Did offer her to stay another night however she declined. Laboratory Results 05/20/18 05/20/18 05/21/18 Range/Units 13:54 21:53 05:20 WBC 5.23 (4.8-10.8) 10^3/uL RBC 3.65 L (4.20-5.40) 10^6/uL Hgb 13.1 (12.0-16.0) g/dL Hct 39.9 (37.0-47.0) % MCV 109.3 H (81-99) FL MCH 35.9 H (27-31) PG MCHC 32.8 L (33-37) g/dL RDW Std Deviation 52.2 H (39-50) fL RDW Coeff of Harmna 13.4 (11.5-14.5) % Plt Count 143 (140-350) 10*3/uL MPV 10.6 (7.4-12.2) FL Immature Gran % (Auto) 0.2 (0-5) % Neut % (Auto) 62.5 (50-80) % Lymph % (Auto) 24.3 (10-50) % [place] % (Auto) 10.3 (5-15) % Eos % (Auto) 2.3 (0-8) % Baso % (Auto) 0.4 (0-1) % Immature Gran # (Auto) 0.01 10*3/UL Neut # (Auto) 3.27 10*3/UL Lymph # (Auto) 1.27 10*3/uL [place] # (Auto) 0.54 (0.3-0.8) 10*3/UL Eos # (Auto) 0.12 10*3/UL Baso # (Auto) 0.02 10*3/UL WBC Morphology Comment Normal morphology (NORM) Plt Morphology Comment Normal morphology (NORM) RBC Morph Comment Normal morphology (NORM) PT (9.7-11.4) secs INR (0.00-5.90) N/A Sodium (135-145) meq/L Potassium (3.8-5.2) meq/L Chloride (98-112) meq/L Carbon Dioxide (23-33) meq/L Anion Gap (5-20) BUN (7-22) mg/dL Creatinine (0.50-1.20) mg/dL Estimated GFR (>60 ml/min/1.73m(2)) BUN/Creatinine Ratio (6-20) Glucose (78-110) mg/dL Calculated Osmolality (267-292) mOsm/kg Calcium (8.7-10.7) mg/dL Phosphorus (2.4-4.3) mg/dl Magnesium (1.6-2.4) mg/dL Total Bilirubin (0.3-1.2) mg/dL AST (8-39) IU/L ALT (9-52) IU/L Alkaline Phosphatase (38-126) IU/L Troponin I < 0.012 (< 0.040) ng/mL Total Protein (6.1-8.0) g/dL Albumin (3.5-4.8) g/dL Globulin (2.50-4.10) g/dL Albumin/Globulin Ratio (1.3-2.0) mg/g Triglycerides (44-200) mg/dL Cholesterol (120-200) mg/dL LDL Cholesterol, Calc mg/dL VLDL Cholesterol (0-40) mg/dL HDL Cholesterol (40-150) mg/dL Cholesterol/HDL Ratio (0-4.0) RATIO Vitamin B12 855 (239-931) pg/mL Serum Folate > 20.0 H (2.76-20.0) NG/ML Free T4 (0.93-1.71) ng/dL 05/21/18 05/21/18 05/21/18 Range/Units 05:20 05:20 05:20 WBC (4.8-10.8) 10^3/uL RBC (4.20-5.40) 10^6/uL Hgb (12.0-16.0) g/dL Hct (37.0-47.0) % MCV (81-99) FL MCH (27-31) PG MCHC (33-37) g/dL RDW Std Deviation (39-50) fL RDW Coeff of [place] (11.5-14.5) % Plt Count (140-350) 10*3/uL MPV (7.4-12.2) FL Immature Gran % (Auto) (0-5) % Neut % (Auto) (50-80) % Lymph % (Auto) (10-50) % [place] % (Auto) (5-15) % Eos % (Auto) (0-8) % Baso % (Auto) (0-1) % Immature Gran # (Auto) 10*3/UL Neut # (Auto) 10*3/UL Lymph # (Auto) 10*3/uL [place] # (Auto) (0.3-0.8) 10*3/UL Eos # (Auto) 10*3/UL Baso # (Auto) 10*3/UL WBC Morphology Comment (NORM) Plt Morphology Comment (NORM) RBC Morph Comment (NORM) PT 10.2 (9.7-11.4) secs INR 0.99 (0.00-5.90) N/A Sodium 135 (135-145) meq/L Potassium 4.4 (3.8-5.2) meq/L Chloride 108 (98-112) meq/L Carbon Dioxide 24 (23-33) meq/L Anion Gap 3 L (5-20) BUN 6 L (7-22) mg/dL Creatinine 0.6 (0.50-1.20) mg/dL Estimated GFR > 60 (>60 ml/min/1.73m(2)) BUN/Creatinine Ratio 10.00 (6-20) Glucose 63 L (78-110) mg/dL Calculated Osmolality 275.0 (267-292) mOsm/kg Calcium 7.8 L (8.7-10.7) mg/dL Phosphorus 3.7 (2.4-4.3) mg/dl Magnesium 2.6 H (1.6-2.4) mg/dL Total Bilirubin 0.6 (0.3-1.2) mg/dL AST 82 H (8-39) IU/L ALT 88 H (9-52) IU/L Alkaline Phosphatase 71 (38-126) IU/L Troponin I (< 0.040) ng/mL Total Protein 5.4 L (6.1-8.0) g/dL Albumin 2.8 L (3.5-4.8) g/dL Globulin 2.6 (2.50-4.10) g/dL Albumin/Globulin Ratio 1.00 L (1.3-2.0) mg/g Triglycerides 49 (44-200) mg/dL Cholesterol 161 (120-200) mg/dL LDL Cholesterol, Calc 47.200 mg/dL VLDL Cholesterol 9 (0-40) mg/dL HDL Cholesterol 104 (40-150) mg/dL Cholesterol/HDL Ratio 1.54 (0-4.0) RATIO Vitamin B12 (239-931) pg/mL Serum Folate (2.76-20.0) NG/ML Free T4 0.91 L (0.93-1.71) ng/dL Discharge sections Diet regular Activity as tolerated Medications Current Medication(s) 3 Medication Instructions Recorded Confirmed Type Aspirin [Aspir 81] 81 mg PO DAILY tab 12/12/15 05/20/18 History sertraline 100 mg tablet 100 mg PO QD #90 tab 02/08/18 05/20/18 Rx ondansetron 4 mg disintegrating 4 mg PO BID-TID PRN #10 tab 05/19/18 05/20/18 Rx tablet pantoprazole 40 mg tablet,delayed 40 mg PO BID 14 Days #28 tab 05/19/18 Rx release Cyanocobalamin (Vitamin B-12) 1,000 mcg PO DAILY 05/20/18 05/20/18 History [B-12] Multivitamin [Multivitamins] 1 ea PO DAILY 05/20/18 05/20/18 History Aspirin 325 mg PO DAILY #30 tab 05/21/18 Rx Lorazepam [Ativan] 1 mg PO TID PRN #21 tab 05/21/18 Rx Metoprolol Succinate [Toprol XL] 25 mg PO DAILY #30 tab.sr.24h 05/21/18 Rx Follow-up with PCP next week, with Dr. Fontanez next week Condition at discharge was stable for discharge Exam - Vitals Vital Signs: Vital Signs Temperature 97.8 F Temperature Source Oral Pulse Rate [Pulse Oximeter] 78 Pulse Rate [Telemetry] 87 Pulse Rate 84 Respiratory Rate 18 Blood Pressure [Right Arm] 130/79 Blood Pressure 145/88 Pulse Ox 97 Oxygen Flow Rate 2 Oxygen Delivery Method Room Air Height 5 ft 3 in Weight 145 lb 5 oz - General General Appearance: No Acute Distress, Cooperative - Head Head Exam: Normal Inspection - Eye Eye Exam: POSITIVE: Normal Appearance - ENT ENT Exam: POSITIVE: Normal Exam - Neck Neck Exam: Normal Inspection - Respiratory Respiratory Exam: POSITIVE: Clear to Auscultation - Bilaterally - Cardiovascular Cardiovascular Exam: POSITIVE: RRR - GI/Abdominal GI/Abdominal Exam: POSITIVE: Normal Bowel Sounds, Non Tender, Non Distended, No Organomegaly - Rectal Rectal Exam: POSITIVE: Deferred - External Exam: POSITIVE: Deferred Exam: POSITIVE: Deferred - Extremities Extremities Exam: POSITIVE: Normal Inspection - Back Back Exam: POSITIVE: Normal Inspection - Neurological Neurological Exam: POSITIVE: Alert, Oriented x 3, CN II-XII Intact, No Facial Droop, Speech Intact / Clear - Psychiatric Psychiatric Exam: POSITIVE: Normal Affect - Integumentary Integumentary Exam: POSITIVE: Normal Color
[2018-05-23] MEDS ORDERED: Multivitamin Tab 1 TAB PO SCH (09:00)
[2018-05-25] MEDS ORDERED: Thiamine Tab 100 MG TAB PO SCH (12:16)
== END 2018-05-21 18:16 | disposition home or self-care (01) | DRG 309 ==
LOC: ER 09:50 → MED/SURG 13:41
PROVIDERS: ADMIT Family Medicine; ATTEND Family Medicine